=== PATIENT | female | born 1955 | race Caucasian/White ===

== ENCOUNTER 2017-07-18 01:40 | Emergency (ER) | payer MEDICAID ==
[~2017-07-18] VITALS: Ht 167.6 cm; Wt 87.0 kg
[~2017-07-18 01:40] MED LIST: ALBU0.63 NEB; ALBU18HF2 IH; ASPI-1071 PO; DOCU250C4 PO; ESCI10TA PO; HYDR-565 PO; LEVO100T46 PO; LORA10TA7 PO; NABU-102 PO; SIMV10TA2 PO; TRAZ50TA54 PO; [UNRECOGNIZED DRUG - OTHER] TOP
[2017-07-18 02:15] LABS: BASOPHILS # (AUTO) 0.1 X10'3 (0-0.2); BASOPHILS % (AUTO) 0.6 % (0-1); EOSINOPHILS # (AUTO) 0.3 X10'3 (0-0.9); EOSINOPHILS % (AUTO) 3.6 % (0-6); HEMOGLOBIN 13.1 g/dl (12.0-16.0); LYMPHOCYTES # (AUTO) 2.2 X10'3 (1.1-4.8); LYMPHOCYTES % (AUTO) 22.5 % (21-51); MEAN CORPUSCULAR HEMOGLOBIN 30.4 PG (27.0-31.0); MEAN CORPUSCULAR HGB CONC 33.7 % (33.0-36.5); MEAN CORPUSCULAR VOLUME 90.3 FL (78-98); MEAN PLATELET VOLUME 8.4 FL (7.4-10.4); MONOCYTES # (AUTO) 1.1 X10'3 (0-0.9); MONOCYTES % (AUTO) 11.4 % (2-12); NEUTROPHILS # (AUTO) 5.9 X10'3 (1.8-7.7); NEUTROPHILS % (AUTO) 61.9 % (42-75); PLATELET COUNT 301 X10'3 (140-440); RED BLOOD COUNT 4.32 X10'6 (4.20-5.60); RED CELL DISTRIBUTION WIDTH 14.2 % (11.5-14.5); WHITE BLOOD COUNT 9.6 X10'3 (4.5-11.0)
[2017-07-18 02:25] LABS: PARTIAL THROMBOPLASTIN TIME 27 SECONDS (22-32); PROTHROMBIN TIME 9.9 SECONDS (9.0-12.0)
[2017-07-18 02:35] LABS: ALANINE AMINOTRANSFERASE 25 U/L (12-78); ALBUMIN 3.7 G/DL (3.4-5.0); ALBUMIN/GLOBULIN RATIO 0.9 (1.1-1.5); ALKALINE PHOSPHATASE 77 IU/L (46-116); ANION GAP 12 (8-16); ASPARTATE AMINO TRANSFERASE 21 U/L (10-37); BILIRUBIN,TOTAL 0.3 MG/DL (0.1-1.0); BLOOD UREA NITROGEN 14 MG/DL (7-18); BUN/CREATININE RATIO 13.3 (6.6-38.0); CALCIUM 9.1 MG/DL (8.5-10.1); CHLORIDE 104 MMOL/L (99-107); CREATININE 1.05 MG/DL (0.40-0.90); GLUCOSE 123 MG/DL (70-104); MAGNESIUM 1.8 MG/DL (1.5-2.4); POTASSIUM 3.8 MMOL/L (3.5-5.1); SODIUM 141 MMOL/L (135-145); TOTAL PROTEIN 7.7 G/DL (6.4-8.2); eGFR 53 ML/MIN
[2017-07-18 04:07] VITALS: BP 119/49
== END 2017-07-18 04:09 | disposition home or self-care (01) ==
LOC: ER 01:41
DX: I47.1 Supraventricular tachycardia (principal); E78.00 Pure hypercholesterolemia, unspecified; I10 Essential (primary) hypertension; G89.29 Other chronic pain; E05.90 Thyrotoxicosis, unspecified without thyrotoxic crisis or storm; M19.90 Unspecified osteoarthritis, unspecified site; Z90.710 Acquired absence of both cervix and uterus; Z98.890 Other specified postprocedural states; Z79.82 Long term (current) use of aspirin; Z79.899 Other long term (current) drug therapy
CPT/HCPCS: 36415; 71045; 80053; 83735; 83880; 84100; 84484; 85025; 85610; 85730; 93005; 99285; J7030

== ENCOUNTER 2018-05-06 13:19 | Outpatient (CLI) | payer MEDICAID ==
[~2018-05-06] VITALS: Ht 157.5 cm; Wt 94.8 kg
[~2018-05-06 13:19] MED LIST changes: +HYDR-4353 PO; -HYDR-565 PO
[2018-05-06] MEDS ORDERED: OMEP-50 PO (13:42)
[2018-05-06 14:40] LABS: BASOPHILS # (AUTO) 0.1 X10'3 (0-0.2); BASOPHILS % (AUTO) 0.5 % (0-1); EOSINOPHILS # (AUTO) 0.4 X10'3 (0-0.9); LYMPHOCYTES # (AUTO) 3.4 X10'3 (1.1-4.8); LYMPHOCYTES % (AUTO) 31.9 % (21-51); MEAN CORPUSCULAR HEMOGLOBIN 30.6 PG (27.0-31.0); MEAN CORPUSCULAR HGB CONC 33.6 g/dL (33.0-36.5); MEAN CORPUSCULAR VOLUME 90.9 FL (78-98); MEAN PLATELET VOLUME 8.5 FL (7.4-10.4); MONOCYTES # (AUTO) 0.7 X10'3 (0-0.9); MONOCYTES % (AUTO) 6.9 % (2-12); NEUTROPHILS # (AUTO) 6.1 X10'3 (1.8-7.7); NEUTROPHILS % (AUTO) 56.7 % (42-75); PRE OP HEMATOCRIT 39.6 % (35.0-45.0); PRE OP HEMOGLOBIN 13.3 g/dL (12.0-16.0); PRE OP PLATELET COUNT 366 X10'3 (140-440); RED BLOOD COUNT 4.36 X10'6 (4.20-5.60); RED CELL DISTRIBUTION WIDTH 14.4 % (11.5-14.5)
[2018-05-06 15:01] LABS: PRE OP PROTIME 9.7 SECONDS (9.0-12.0)
[2018-05-06 15:03] LABS: ALBUMIN 3.9 G/DL (3.4-5.0); ALBUMIN/GLOBULIN RATIO 1.1 (1.1-1.5); ALKALINE PHOSPHATASE 89 IU/L (46-116); BLOOD UREA NITROGEN 14 MG/DL (7-18); BUN/CREATININE RATIO 15.4 (6.6-38.0); CALCIUM 9.3 MG/DL (8.5-10.1); CHLORIDE 105 MMOL/L (99-107); CREATININE 0.91 MG/DL (0.40-0.90); PRE OP ALT 25 U/L (30-65); PRE OP ANION GAP 7 (8-16); PRE OP AST 13 U/L (10-37); PRE OP BILIRUB, TOTAL 0.3 MG/DL (0.0-1.0); PRE OP GLUCOSE 90 MG/DL (70-104); PRE OP POTASSIUM 4.4 MMOL/L (3.4-5.1); PRE OP SODIUM 142 MMOL/L (135-145); TOTAL CARBON DIOXIDE 29.9 MMOL/L (24-32); TOTAL PROTEIN 7.6 G/DL (6.4-8.2); eGFR 63 ML/MIN
[2018-05-07] MEDS ORDERED: FLO44IN PO (11:04)
[2018-05-07] MEDS ORDERED: cefazolin/dext.iso 2gm/50ml 50 ML IV ONE (12:25)
[2018-05-08] MEDS ORDERED: ringers solution, lacted 1,000 ML IV SCH (05:00)
[2018-05-08] MEDS ORDERED: tranexamic acid inj. 950 MG in normal saline 100ml IV soln 100 ML IV ONE ×2 (05:30→09:30)
[2018-05-08] MEDS ORDERED: famotidine 20mg tablet PO ONE (05:30)
[2018-05-08] MEDS ORDERED: VANCOMYCIN INJ 1000 MG in NORMAL SALINE 250ml IV.SOLN IV ONE (05:30)
[2018-05-08] MEDS ORDERED: cefazolin/dext.iso 2gm/100 ML IV ONE (05:30)
== END 2018-05-06 23:59 | disposition home or self-care (01) ==
LOC: PRE-OP 13:19 → EDSTATUS 05-08 07:30
PROVIDERS: ATTEND Orthopaedic Surgery
DX: Z01.818 Encounter for other preprocedural examination (principal); M25.511 Pain in right shoulder; M19.011 Primary osteoarthritis, right shoulder; M75.22 Bicipital tendinitis, left shoulder; G56.03 Carpal tunnel syndrome, bilateral upper limbs; M62.81 Muscle weakness (generalized); M79.602 Pain in left arm; M25.532 Pain in left wrist; M25.531 Pain in right wrist; I10 Essential (primary) hypertension; Z98.890 Other specified postprocedural states; Z96.612 Presence of left artificial shoulder joint
CPT/HCPCS: 36415; 71046; 80053; 84443; 85025; 85610; 85730; 87070; J0690

== ENCOUNTER 2018-09-08 15:03 | Emergency (ER) | payer MEDICAID ==
[~2018-09-08] VITALS: Ht 152.4 cm; Wt 95.0 kg
[~2018-09-08 15:03] MED LIST changes: -ASPI-1071 PO; -DOCU250C4 PO; +FLO44IN PO; +OMEP-50 PO; -TRAZ50TA54 PO; -[UNRECOGNIZED DRUG - OTHER] TOP
[2018-09-08] MEDS ORDERED: normal saline 1000ML IV soln IVB ONE (15:40)
[2018-09-08 15:50] LABS: BASOPHILS # (AUTO) 0.1 X10'3 (0-0.2); BASOPHILS % (AUTO) 1.2 % (0-1); EOSINOPHILS # (AUTO) 0.3 X10'3 (0-0.9); EOSINOPHILS % (AUTO) 2.9 % (0-6); HEMATOCRIT 37.3 % (35.0-45.0); HEMOGLOBIN 12.6 g/dl (12.0-16.0); LYMPHOCYTES # (AUTO) 3.2 X10'3 (1.1-4.8); LYMPHOCYTES % (AUTO) 31.2 % (21-51); MEAN CORPUSCULAR HEMOGLOBIN 30.5 PG (27.0-31.0); MEAN CORPUSCULAR HGB CONC 33.7 g/dL (33.0-36.5); MEAN CORPUSCULAR VOLUME 90.4 FL (78-98); MEAN PLATELET VOLUME 8.6 FL (7.4-10.4); MONOCYTES # (AUTO) 0.9 X10'3 (0-0.9); MONOCYTES % (AUTO) 8.6 % (2-12); NEUTROPHILS # (AUTO) 5.8 X10'3 (1.8-7.7); NEUTROPHILS % (AUTO) 56.1 % (42-75); PLATELET COUNT 346 X10'3 (140-440); RED BLOOD COUNT 4.12 X10'6 (4.20-5.60); WHITE BLOOD COUNT 10.4 X10'3 (4.5-11.0)
[2018-09-08 16:04] LABS: ALANINE AMINOTRANSFERASE 24 U/L (12-78); ALBUMIN 3.4 G/DL (3.4-5.0); ALBUMIN/GLOBULIN RATIO 0.9 (1.1-1.5); ALKALINE PHOSPHATASE 81 IU/L (46-116); ANION GAP 4 (8-16); ASPARTATE AMINO TRANSFERASE 16 U/L (10-37); BILIRUBIN,TOTAL 0.3 MG/DL (0.1-1.0); BLOOD UREA NITROGEN 17 MG/DL (7-18); BUN/CREATININE RATIO 25.8 (6.6-38.0); CALCIUM 8.6 MG/DL (8.5-10.1); CHLORIDE 107 MMOL/L (99-107); CREATININE 0.66 MG/DL (0.40-0.90); GLUCOSE 107 MG/DL (70-104); POTASSIUM 4.2 MMOL/L (3.5-5.1); SODIUM 141 MMOL/L (135-145); TOTAL CARBON DIOXIDE 29.8 MMOL/L (24-32); eGFR > 90 ML/MIN
[2018-09-08 16:07] LABS: PARTIAL THROMBOPLASTIN TIME 30 SECONDS (22-32)
[2018-09-08 17:05] VITALS: BP 133/81
== END 2018-09-08 17:06 | disposition home or self-care (01) ==
LOC: ER 15:04
DX: R42 Dizziness and giddiness (principal); E86.0 Dehydration; R00.2 Palpitations; R79.1 Abnormal coagulation profile; I10 Essential (primary) hypertension; E78.00 Pure hypercholesterolemia, unspecified; G89.29 Other chronic pain; M19.90 Unspecified osteoarthritis, unspecified site; E05.90 Thyrotoxicosis, unspecified without thyrotoxic crisis or storm; J44.9 Chronic obstructive pulmonary disease, unspecified; Z79.899 Other long term (current) drug therapy; Z90.710 Acquired absence of both cervix and uterus; Z98.890 Other specified postprocedural states
CPT/HCPCS: 36415; 71045; 80053; 84484; 85025; 85610; 85730; 93005; 96360; 99284; J7030

== ENCOUNTER 2018-11-03 11:59 | Outpatient (CLI) | payer MEDICAID ==
[2018-11-03] VITALS (17 sets, daily range): BP systolic 95–144; BP diastolic 54–88
== END 2018-11-03 23:59 | disposition home or self-care (01) ==
LOC: CARD DIAG 11:59
PROVIDERS: ATTEND Internal Medicine Interventional Cardiology
DX: R42 Dizziness and giddiness (principal); I10 Essential (primary) hypertension; J45.909 Unspecified asthma, uncomplicated; Z90.710 Acquired absence of both cervix and uterus; Z90.722 Acquired absence of ovaries, bilateral
CPT/HCPCS: 93660

== ENCOUNTER 2021-06-12 09:04 | Inpatient (IN) | payer MEDICARE, MEDICAID ==
[2021-06-05 16:20] LABS: BASOPHILS # (AUTO) 0.1 X10'3 (0-0.2); BASOPHILS % (AUTO) 0.6 % (0-1); EOSINOPHILS # (AUTO) 0.1 X10'3 (0-0.9); EOSINOPHILS % (AUTO) 1.2 % (0-6); LYMPHOCYTES # (AUTO) 3.9 X10'3 (1.1-4.8); LYMPHOCYTES % (AUTO) 35.7 % (21-51); MEAN CORPUSCULAR HEMOGLOBIN 29.8 PG (27.0-31.0); MEAN CORPUSCULAR HGB CONC 32.8 g/dL (33.0-36.5); MEAN CORPUSCULAR VOLUME 90.9 FL (78-98); MEAN PLATELET VOLUME 8.1 FL (7.4-10.4); MONOCYTES # (AUTO) 0.8 X10'3 (0-0.9); MONOCYTES % (AUTO) 7.2 % (2-12); NEUTROPHILS % (AUTO) 55.3 % (42-75); PRE OP HEMATOCRIT 38.1 % (35.0-45.0); PRE OP HEMOGLOBIN 12.5 g/dL (12.0-16.0); PRE OP PLATELET COUNT 350 X10'3 (140-440); RED CELL DISTRIBUTION WIDTH 14.5 % (11.5-14.5)
[2021-06-05 16:26] LABS: ALKALINE PHOSPHATASE 96 IU/L (46-116); BLOOD UREA NITROGEN 14 MG/DL (7-18); BUN/CREATININE RATIO 19.4 (6.6-38.0); CALCIUM 9.2 MG/DL (8.5-10.1); CHLORIDE 103 MMOL/L (99-107); CREATININE 0.72 MG/DL (0.40-0.90); PRE OP ALT 26 U/L (30-65); PRE OP ANION GAP 12 (8-16); PRE OP AST 26 U/L (10-37); PRE OP BILIRUB, TOTAL 0.6 MG/DL (0.0-1.0); PRE OP GLUCOSE 97 MG/DL (70-104); PRE OP POTASSIUM 4.3 MMOL/L (3.4-5.1); PRE OP SODIUM 140 MMOL/L (135-145); TOTAL CARBON DIOXIDE 25.5 MMOL/L (24-32); TOTAL PROTEIN 7.9 G/DL (6.4-8.2); eGFR 81 ML/MIN
[2021-06-12] VITALS (20 sets, daily range): BP systolic 102–139; BP diastolic 52–75
[~2021-06-12] VITALS: Ht 154.9 cm; Wt 103.1 kg
[~2021-06-12 09:04] MED LIST changes: -ALBU0.63 NEB; +APIX5TAB3 PO; +FLEC100T35 PO; -FLO44IN PO; +GABA-530 PO; -LEVO100T46 PO; -LORA10TA7 PO; -NABU-102 PO; -OMEP-50 PO; +OMEP20CA16 PO; +albuterol 2.5 MG/3 ML nebule NEB ONE; +cefazolin/dext.iso 2gm/50ml IV ONE; +famotidine 20mg tablet PO ONE; +tranexamic acid 650mg tablet PO ONE; +vancomycin 1,500 MG in NS 300ml IV soln IV ONE
[2021-06-12] MEDS ORDERED: LEVO88TA7 PO (09:59)
[2021-06-12] MEDS ORDERED: UMEC62.5 PO (09:59)
[2021-06-12] MEDS ORDERED: albuterol 2.5 MG/3 ML nebule NEB ONE (10:05)
[2021-06-12] MEDS: ringers solution, lacted 1,000 ML IV SCH (10:24)
--- NOTE | 2021-06-12 11:18 | NUR ---
PT WAS ABLE TO COMPLETE ALL 5 SHOWERS AND BID OINTMENT. PT DID RECEIVE DVD, BUT DID NOT WATCH IT-PT DID NOT OWN DVD PLAYER. CSM TO RIGHT ARM INTACT
[2021-06-12] MEDS ORDERED: morphine 4 MG/ML inj SYRINge IV STA (11:27)
--- NOTE | 2021-06-12 11:47 | NUR ---
4MG MORPHINE GIVEN FOR PAIN 8/10 IN RIGHT SHOULDER, PULSE OX ON TO MONITOR O2 SAT, PT RESTING QUIETLY.
[2021-06-12] MEDS ORDERED: ketorolac trometh. 30mg/ml inj. ONE (12:27)
[2021-06-12] MEDS ORDERED: ROPIVAcaine 0.5% (5mg/ml) 30ml vial ONE (12:27)
[2021-06-12] MEDS ORDERED: FENTANYL CITRATE/PF 50 MCG/1 ML VIAL ONE (13:17)
[2021-06-12] MEDS ORDERED: LIDOcaine 2% (20mg/ml) 5ml vial ONE (13:18)
[2021-06-12] MEDS ORDERED: propofol inj 20 ML IV ONE (13:18)
[2021-06-12] MEDS ORDERED: succinylcholine 20mg/ml inj IV ONE (13:18)
[2021-06-12] MEDS ORDERED: ondansetron/PF 4mg/2ml inj IV PRN ×2 (14:20→15:35)
[2021-06-12] MEDS ORDERED: ROPIVAcaine 0.2%/PF PUMP/bolus 545 ML INTERSCALE SCH (14:20)
[2021-06-12] MEDS ORDERED: morphine 4 MG/ML inj SYRINge IV PRN (14:20)
[2021-06-12] MEDS ORDERED: ROPIVAcaine 0.2% (10 MG/5 ML) BOLUS INJECTION INTERSCALE PRN (14:20)
[2021-06-12] MEDS ORDERED: ringers solution, lacted 1,000 ML IV SCH (14:20)
[2021-06-12] MEDS ORDERED: morphine 2 MG/ML inj. syringe IV PRN (14:20)
[2021-06-12] MEDS ORDERED: enalaprilat dihydrate 2.5mg/2ml vial IV PRN (14:20)
[2021-06-12] MEDS ORDERED: HYDROmorphone/PF 0.2 MG/ML SYRINGE IV PRN ×2 (14:20)
[2021-06-12] MEDS ORDERED: hydrALAZINE 20mg/ml inj. IV PRN (14:20)
[2021-06-12] MEDS ORDERED: ondansetron/PF 4mg/2ml inj ONE (14:33)
--- NOTE | 2021-06-12 15:23 | NUR ---
Received from OR via hospital bed , accompanied by Anesthesiologist dr martinez and report given by Anesthesiolgist. PT PRESENTS WITH 18 G LET HAND, DRESSING WITH WRAP AND POWDER PACK ON RIGHT SHOULDER, CDI. VSS. Addendum: 06/12/21 at 1558 by Ngoc Simmons RN, RN Amended: Links added.
[2021-06-12] MEDS ORDERED: magnesium hydroxide 30ml (MOM) UD suspension PO PRN (15:35)
[2021-06-12] MEDS ORDERED: HYDROmorphone 1 mg/ml syringe IV PRN (15:35)
[2021-06-12] MEDS ORDERED: diphenhydrAMINE 25mg capsule PO PRN ×2 (15:35)
[2021-06-12] MEDS ORDERED: HYDROmorphone inj. 0.5 MG/0.5 ML DISP.SYRIN IV PRN (15:35)
[2021-06-12] MEDS ORDERED: bisacodyl 10mg suppository rectal RC PRN (15:35)
[2021-06-12] MEDS ORDERED: oxyCODONE IR 5mg (immed. release) tablet PO PRN (15:35)
[2021-06-12] MEDS ORDERED: acetaminophen 325mg tablet PO PRN ×3 (15:35→17:30)
[2021-06-12] MEDS ORDERED: albuterol 2.5 MG/3 ML nebule NEB PRN (15:50)
--- NOTE | 2021-06-12 16:53 | NUR ---
Report called to receiving nurse SAIRA ASHLEY. Transferred via HOSPITAL BED WITH C-PAP AND 1 PT Belongings BAG TO ROOM 345B. TAKEN UP BY OR Joroto. Special Issues communicated to receiving nurse. Addendum: 06/12/21 at 1659 by Ngoc Simmons RN RN Amended: Links added.
--- NOTE | 2021-06-12 17:26 | NUR ---
Spoke to Dr Olvera patient has a headache and just wants tylenol. Patient has scheduled tylenol at 2000. Per Dr olvera ok for Tylenol x1 650 mg po now and then ok for 2000 dose.
--- NOTE | 2021-06-12 18:46 | NUR ---
Patient received from recovery room. Ancef was not available, passed on to night RN. Patient reported only small headache, tylenol given.
--- NOTE | 2021-06-12 18:46 | NUR ---
Problems reprioritized. Patient report given, questions answered & plan of care reviewed with Cesilia Lomas RN.
--- NOTE | 2021-06-12 18:50 | NUR ---
Patient in room [facility]. I have received report from HANS ASHLEY and had the opportunity to ask questions and assume patient care.
[2021-06-12] MEDS: ceFAZolin/D5W- 1GM premix 50 ML IV SCH (18:59)
[2021-06-12] MEDS: acetaminophen 325mg tablet PO SCH (20:00)
[2021-06-12] MEDS ORDERED: VANCOMYCIN 1GM/200ML IVPB 250 ML IV SCH (20:00)
[2021-06-12] MEDS: apixaban 5mg tablet PO SCH (20:48)
[2021-06-12] MEDS: flecainide 50mg tablet PO SCH (20:49)
[2021-06-12] MEDS: oxyCODONE IR 5mg (immed. release) tablet PO PRN (20:54)
[2021-06-12] MEDS ORDERED: gabapentin 100mg capsule PO SCH (21:00)
[2021-06-12] MEDS ORDERED: sennosides 8.6mg tablet PO SCH (21:00)
[2021-06-12] MEDS ORDERED: atorvastatin 10mg tablet PO SCH (21:00)
[2021-06-13] VITALS: BP 113/63
[2021-06-13] MEDS: ceFAZolin/D5W- 1GM premix 50 ML IV SCH (01:01)
[2021-06-13] MEDS: ringers solution, lacted 1,000 ML IV SCH (01:04)
[2021-06-13] MEDS: acetaminophen 325mg tablet PO SCH ×3 (02:00→13:37)
[2021-06-13 04:00] VITALS: BP 156/96
[2021-06-13] MEDS: oxyCODONE IR 5mg (immed. release) tablet PO PRN ×2 (04:11→17:02)
--- NOTE | 2021-06-13 06:13 | NUR ---
Problems reprioritized. Patient report given, questions answered & plan of care reviewed with HANS ASHLEY.
[2021-06-13 07:11] VITALS: BP 144/68
[2021-06-13] MEDS: flecainide 50mg tablet PO SCH (07:27)
[2021-06-13] MEDS: apixaban 5mg tablet PO SCH (07:28)
[2021-06-13] MEDS ORDERED: pantoprazole 40mg Tablet.DR PO SCH (07:30)
[2021-06-13] MEDS ORDERED: HYDROcodone/acetaminophen 10/325mg tab PO SCH (08:00)
[2021-06-13] MEDS ORDERED: ESCITALOPRAM OXALATE 5 MG TABLET PO SCH (08:00)
--- NOTE | 2021-06-13 10:46 | NUR ---
Respiratory team paged regarding breathing treatment request from patient.
--- NOTE | 2021-06-13 11:34 | NUR ---
Spoke to jt Estrada regarding patient's Ellipta. She says she will be able to bring it in.
[2021-06-13 12:00] VITALS: BP 135/58
[2021-06-13 13:16] LABS: BASOPHILS % (AUTO) 0.2 % (0-1); EOSINOPHILS % (AUTO) 0 % (0-6); HEMATOCRIT 33.9 % (35.0-45.0); HEMOGLOBIN 10.9 g/dl (12.0-16.0); LYMPHOCYTES # (AUTO) 2.6 X10'3 (1.1-4.8); LYMPHOCYTES % (AUTO) 17.2 % (21-51); MEAN CORPUSCULAR HGB CONC 32.2 g/dL (33.0-36.5); MEAN CORPUSCULAR VOLUME 90.3 FL (78-98); MONOCYTES # (AUTO) 1.4 X10'3 (0-0.9); MONOCYTES % (AUTO) 9.2 % (2-12); NEUTROPHILS # (AUTO) 11.3 X10'3 (1.8-7.7); NEUTROPHILS % (AUTO) 73.4 % (42-75); PLATELET COUNT 341 X10'3 (140-440); RED BLOOD COUNT 3.75 X10'6 (4.20-5.60); RED CELL DISTRIBUTION WIDTH 14.9 % (11.5-14.5); WHITE BLOOD COUNT 15.3 X10'3 (4.5-11.0)
[2021-06-13] MEDS ORDERED: ondansetron 4mg rapidly disintigrating tab PO PRN (14:00)
[2021-06-13 14:19] LABS: CHLORIDE 104 MMOL/L (99-107); POTASSIUM 3.8 MMOL/L (3.5-5.1); SODIUM 141 MMOL/L (135-145)
[2021-06-13 14:24] LABS: ANION GAP 11 (8-16)
--- NOTE | 2021-06-13 16:19 | NUR ---
Ambulated patient around unit on room air, patient oxygen saturation mid 90s after ambulating. Amelia Tran says she is not worried about patient report of green sputum. Will be discharging.
--- NOTE | 2021-06-13 17:26 | NUR ---
Discharge paperwork reviewed with patient. Belongings/medications sent with patient. ON-Q pump instructions reviewed. IV removed, catheter tip intact. Free from injuries.
[2021-06-14] MEDS ORDERED: acetaminophen 325mg tablet PO PRN (15:00)
== END 2021-06-13 17:26 | disposition home health service (06) | DRG 483 ==
LOC: PAS IN 09:04 → SUR 3N 17:00
PROVIDERS: ADMIT Orthopaedic Surgery; ATTEND Orthopaedic Surgery
PROC: 0LS30ZZ Reposition Right Upper Arm Tendon, Open Approach (ICD-10-PCS; 2021-06-12)
PROC: 3E0T3BZ Introduction of Anesthetic Agent into Peripheral Nerves and Plexi, Percutaneous Approach (ICD-10-PCS; 2021-06-12)
PROC: 3E0T33Z Introduction of Anti-inflammatory into Peripheral Nerves and Plexi, Percutaneous Approach (ICD-10-PCS; 2021-06-12)
PROC: 0RRJ00Z Replacement of Right Shoulder Joint with Reverse Ball and Socket Synthetic Substitute, Open Approach (ICD-10-PCS; principal; 2021-06-12 13:13)
DX: M19.011 Primary osteoarthritis, right shoulder (principal); M65.811 Other synovitis and tenosynovitis, right shoulder; J44.9 Chronic obstructive pulmonary disease, unspecified; M75.101 Unspecified rotator cuff tear or rupture of right shoulder, not specified as traumatic; Z56.0 Unemployment, unspecified
CPT/HCPCS: 36415; 71046; 80051; 80053; 82948; 84443; 85025; 87081; 93005; 94640; 94760; 97110; 97116; 97161; 97530; A4215; A4618; A7000; C1776; G0378; J0330; J0690; J1885; J2270; J2405; J2704; J2795; J3010; J3370; J3490; J7040; J7120; U0003; U0005

== ENCOUNTER 2021-06-22 13:16 | Inpatient (IN) | payer MEDICARE, MEDICAID ==
[~2021-06-22] VITALS: Ht 157.5 cm; Wt 105.9 kg
[~2021-06-22 13:16] MED LIST changes: -HYDR-4353 PO; +LEVO88TA7 PO; +UMEC62.5 PO; -albuterol 2.5 MG/3 ML nebule NEB ONE; -cefazolin/dext.iso 2gm/50ml IV ONE; -famotidine 20mg tablet PO ONE; -tranexamic acid 650mg tablet PO ONE; -vancomycin 1,500 MG in NS 300ml IV soln IV ONE
[2021-06-22 15:29] LABS: BASOPHILS # (AUTO) 0.1 X10'3 (0-0.2); BASOPHILS % (AUTO) 0.6 % (0-1); EOSINOPHILS # (AUTO) 0.3 X10'3 (0-0.9); EOSINOPHILS % (AUTO) 2.9 % (0-6); HEMATOCRIT 30.3 % (35.0-45.0); HEMOGLOBIN 10.1 g/dl (12.0-16.0); LYMPHOCYTES # (AUTO) 2.9 X10'3 (1.1-4.8); LYMPHOCYTES % (AUTO) 27.5 % (21-51); MEAN CORPUSCULAR HEMOGLOBIN 29.9 PG (27.0-31.0); MEAN CORPUSCULAR HGB CONC 33.3 g/dL (33.0-36.5); MEAN CORPUSCULAR VOLUME 89.8 FL (78-98); MEAN PLATELET VOLUME 7.1 FL (7.4-10.4); MONOCYTES # (AUTO) 0.8 X10'3 (0-0.9); MONOCYTES % (AUTO) 7.6 % (2-12); NEUTROPHILS # (AUTO) 6.4 X10'3 (1.8-7.7); NEUTROPHILS % (AUTO) 61.4 % (42-75); PLATELET COUNT 548 X10'3 (140-440); RED BLOOD COUNT 3.38 X10'6 (4.20-5.60); RED CELL DISTRIBUTION WIDTH 14.5 % (11.5-14.5); WHITE BLOOD COUNT 10.4 X10'3 (4.5-11.0)
[2021-06-22 15:49] LABS: D-DIMER 7.63 MG/L FEU (0-0.50)
[2021-06-22 15:55] LABS: ALANINE AMINOTRANSFERASE 49 U/L (12-78); ALBUMIN/GLOBULIN RATIO 0.8 (1.1-1.5); ALKALINE PHOSPHATASE 119 IU/L (46-116); ANION GAP 10 (8-16); ASPARTATE AMINO TRANSFERASE 26 U/L (10-37); BILIRUBIN,TOTAL 0.5 MG/DL (0.1-1.0); BLOOD UREA NITROGEN 10 MG/DL (7-18); BUN/CREATININE RATIO 17.2 (6.6-38.0); CHLORIDE 105 MMOL/L (99-107); CREATININE 0.58 MG/DL (0.40-0.90); GLUCOSE 98 MG/DL (70-104); POTASSIUM 4.1 MMOL/L (3.5-5.1); SODIUM 143 MMOL/L (135-145); TOTAL CARBON DIOXIDE 27.6 MMOL/L (24-32); eGFR > 90 ML/MIN
[2021-06-22] MEDS ORDERED: iohexol 350MG/ML 100ml bottle IV ONE (16:59)
[2021-06-22] MEDS ORDERED: iohexol 350 MG/ML 50ML vial IV ONE (17:04)
[2021-06-22] MEDS ORDERED: piperacillin/tazo 3.375gm/50ml 50 ML IV ONE (19:05)
--- NOTE | 2021-06-22 19:45 | NUR ---
Telemed assessing pt.
--- NOTE | 2021-06-22 21:45 | NUR ---
Viraj called to inquire about pt's status.
--- NOTE | 2021-06-22 22:00 | NUR ---
pt upset because provider did not return to discuss the results of her tests and status; sat with pt and address her concerns and to update her on the progress of her visit in the ed; pt began feeling better after our discussion.
--- NOTE | 2021-06-22 22:14 | NUR ---
Dr. Maldonado at bs
[2021-06-22] MEDS ORDERED: acetaminophen 325mg tablet PO PRN ×2 (22:25)
[2021-06-22] MEDS ORDERED: magnesium Cl slow-release 64mg tablet PO PRN (22:25)
[2021-06-22] MEDS ORDERED: ondansetron/PF 4mg/2ml inj IV PRN (22:25)
[2021-06-22] MEDS ORDERED: magnesium 4gm in 100ml NS 100 ML IV PRN (22:25)
[2021-06-22] MEDS ORDERED: mag hydrox/Alum hydrox/simeth 30ml oral suspension PO PRN (22:25)
[2021-06-22] MEDS ORDERED: potassium CL 10mEq/100ml bag 100 ML IV PRN (22:25)
[2021-06-22] MEDS ORDERED: morphine 2 MG/ML inj. syringe IV PRN ×2 (22:25)
[2021-06-22] MEDS ORDERED: potassium Cl 20 mEq SR tablet PO PRN ×2 (22:25)
[2021-06-22] MEDS ORDERED: magnesium 2GM in 50ml NS 50 ML IV PRN (22:25)
[2021-06-22] MEDS ORDERED: HYDROcodone/acetaminophen 5mg/325mg tablet PO PRN (22:25)
[2021-06-22] MEDS ORDERED: albuterol 2.5 MG/3 ML nebule NEB PRN (22:55)
[2021-06-22] MEDS: normal saline 1000ml 1,000 ML IV SCH (23:06)
--- NOTE | 2021-06-22 23:17 | NUR ---
Report called to RN on surgical unit for bed 358A
[2021-06-23] VITALS: BP 119/71
--- NOTE | 2021-06-23 00:45 | NUR ---
ATTEMPTED TO SET UP PATIENT WITH HOSPITAL CPAP MACHINE. PATIENT STATED SHE COULD NOT HANDLE OUR MASKS OR MACHINE. SHE STATED SHE WOULD HAVE FAMILY BRING IN HER PERSONAL UNIT TODAY. RN AND INFORMED
[2021-06-23] MEDS: ipratropium 0.5 MG/2.5ML nebule NEB SCH ×4 (03:00→21:11)
[2021-06-23 06:04] LABS: BASOPHILS % (AUTO) 0.3 % (0-1); EOSINOPHILS # (AUTO) 0.2 X10'3 (0-0.9); EOSINOPHILS % (AUTO) 1.8 % (0-6); HEMATOCRIT 29.4 % (35.0-45.0); HEMOGLOBIN 9.4 g/dl (12.0-16.0); LYMPHOCYTES # (AUTO) 2.8 X10'3 (1.1-4.8); LYMPHOCYTES % (AUTO) 24.5 % (21-51); MEAN CORPUSCULAR HEMOGLOBIN 28.8 PG (27.0-31.0); MEAN CORPUSCULAR HGB CONC 31.8 g/dL (33.0-36.5); MEAN CORPUSCULAR VOLUME 90.3 FL (78-98); MEAN PLATELET VOLUME 7.2 FL (7.4-10.4); MONOCYTES # (AUTO) 0.8 X10'3 (0-0.9); MONOCYTES % (AUTO) 7.3 % (2-12); NEUTROPHILS # (AUTO) 7.5 X10'3 (1.8-7.7); NEUTROPHILS % (AUTO) 66.1 % (42-75); PLATELET COUNT 530 X10'3 (140-440); RED BLOOD COUNT 3.25 X10'6 (4.20-5.60); RED CELL DISTRIBUTION WIDTH 14.9 % (11.5-14.5); WHITE BLOOD COUNT 11.4 X10'3 (4.5-11.0)
[2021-06-23 06:18] LABS: ALANINE AMINOTRANSFERASE 37 U/L (12-78); ALBUMIN 2.8 G/DL (3.4-5.0); ALBUMIN/GLOBULIN RATIO 0.8 (1.1-1.5); ALKALINE PHOSPHATASE 105 IU/L (46-116); ANION GAP 5 (8-16); ASPARTATE AMINO TRANSFERASE 24 U/L (10-37); BILIRUBIN,TOTAL 0.5 MG/DL (0.1-1.0); BLOOD UREA NITROGEN 9 MG/DL (7-18); BUN/CREATININE RATIO 15.8 (6.6-38.0); CALCIUM 8.4 MG/DL (8.5-10.1); CHLORIDE 108 MMOL/L (99-107); CREATININE 0.57 MG/DL (0.40-0.90); GLUCOSE 97 MG/DL (70-104); POTASSIUM 3.8 MMOL/L (3.5-5.1); SODIUM 142 MMOL/L (135-145); TOTAL CARBON DIOXIDE 29.1 MMOL/L (24-32); TOTAL PROTEIN 6.2 G/DL (6.4-8.2); eGFR > 90 ML/MIN
[2021-06-23 07:00] VITALS: BP 130/57
[2021-06-23] MEDS ORDERED: doxycycline inj 100 MG in normal saline 100ml IV soln 100 ML IV SCH (08:00)
[2021-06-23] MEDS: K and/or MAG REPLACEMENT MC SCH ×2 (08:00→20:00)
[2021-06-23] MEDS: flecainide 50mg tablet PO SCH ×2 (08:46→20:49)
[2021-06-23] MEDS: pantoprazole 40mg Tablet.DR PO SCH (08:47)
[2021-06-23] MEDS: levoTHYROXINE 88mcg tablet PO SCH (08:47)
[2021-06-23] MEDS: heparin, porcine 5000 units/ml vial SQ SCH ×2 (08:54→22:10)
[2021-06-23 11:00] VITALS: BP 123/46
[2021-06-23] MEDS: nystatin 15 GM powder TP SCH ×2 (11:32→20:52)
[2021-06-23] MEDS: vancomycin/NS 1 GM ADD-VANTAGE 250 ML IV SCH ×2 (11:32→20:58)
[2021-06-23] MEDS: HYDROcodone/acetaminophen 10/325mg tab PO PRN ×2 (11:33→17:54)
[2021-06-23] MEDS: normal saline 1000ml 1,000 ML IV SCH (12:43)
[2021-06-23] MEDS ORDERED: ondansetron 4mg rapidly disintigrating tab PO PRN (15:20)
--- NOTE | 2021-06-23 19:00 | NUR ---
Report given to Esperanza ASHLEY, all questions answered. No current concerns. Patient resting comfortably, Family came to visit before shift change.
[2021-06-23 20:00] VITALS: BP 131/84
[2021-06-23] MEDS: gabapentin 100mg capsule PO SCH (20:51)
[2021-06-23] MEDS: atorvastatin 10mg tablet PO SCH (20:52)
[2021-06-23] MEDS: hydrocortisone 1% cream 28gm TP SCH (20:53)
[2021-06-23] MEDS: ESCITALOPRAM OXALATE 5 MG TABLET PO SCH (20:55)
[2021-06-24] VITALS: BP 122/50
[2021-06-24] MEDS: normal saline 1000ml 1,000 ML IV SCH ×2 (02:21→17:19)
[2021-06-24] MEDS: ipratropium 0.5 MG/2.5ML nebule NEB SCH ×4 (03:38→21:17)
[2021-06-24 06:06] LABS: BASOPHILS % (AUTO) 0.6 % (0-1); EOSINOPHILS # (AUTO) 0.2 X10'3 (0-0.9); EOSINOPHILS % (AUTO) 2.8 % (0-6); HEMATOCRIT 28.8 % (35.0-45.0); HEMOGLOBIN 9.2 g/dl (12.0-16.0); LYMPHOCYTES # (AUTO) 2.5 X10'3 (1.1-4.8); LYMPHOCYTES % (AUTO) 30.4 % (21-51); MEAN CORPUSCULAR HEMOGLOBIN 28.9 PG (27.0-31.0); MEAN CORPUSCULAR HGB CONC 32.1 g/dL (33.0-36.5); MEAN CORPUSCULAR VOLUME 90.2 FL (78-98); MEAN PLATELET VOLUME 7.1 FL (7.4-10.4); MONOCYTES # (AUTO) 0.6 X10'3 (0-0.9); MONOCYTES % (AUTO) 7.6 % (2-12); NEUTROPHILS # (AUTO) 4.9 X10'3 (1.8-7.7); NEUTROPHILS % (AUTO) 58.6 % (42-75); PLATELET COUNT 523 X10'3 (140-440); RED BLOOD COUNT 3.19 X10'6 (4.20-5.60); RED CELL DISTRIBUTION WIDTH 15.1 % (11.5-14.5); WHITE BLOOD COUNT 8.4 X10'3 (4.5-11.0)
--- NOTE | 2021-06-24 06:33 | NUR ---
[id number] late entry pt became anxious and c/o itching and scratching neck after vancomycin was started. pt stated " i dont know what is wrong. pt neck red rash noted. vanco stopped . dr brown was notified. instructed to stop vancomycin . reminded dr brown pt has positive blood cultures (gram + cocci.in clusters aerobic bottle ) asked dr brown if she wanted any additional antibotics given. no orders given
[2021-06-24 06:38] LABS: ALANINE AMINOTRANSFERASE 32 U/L (12-78); ALBUMIN 2.7 G/DL (3.4-5.0); ALBUMIN/GLOBULIN RATIO 0.8 (1.1-1.5); ALKALINE PHOSPHATASE 94 IU/L (46-116); ANION GAP 10 (8-16); ASPARTATE AMINO TRANSFERASE 16 U/L (10-37); BILIRUBIN,TOTAL 0.3 MG/DL (0.1-1.0); BLOOD UREA NITROGEN 11 MG/DL (7-18); BUN/CREATININE RATIO 17.7 (6.6-38.0); CALCIUM 8.4 MG/DL (8.5-10.1); CHLORIDE 108 MMOL/L (99-107); CREATININE 0.62 MG/DL (0.40-0.90); GLUCOSE 105 MG/DL (70-104); POTASSIUM 3.9 MMOL/L (3.5-5.1); SODIUM 144 MMOL/L (135-145); TOTAL CARBON DIOXIDE 26.2 MMOL/L (24-32); eGFR > 90 ML/MIN
[2021-06-24 07:00] VITALS: BP 153/60
[2021-06-24] MEDS: heparin, porcine 5000 units/ml vial SQ SCH ×2 (07:36→19:45)
[2021-06-24] MEDS: K and/or MAG REPLACEMENT MC SCH ×2 (07:38→19:47)
[2021-06-24] MEDS: flecainide 50mg tablet PO SCH ×2 (07:42→19:45)
[2021-06-24] MEDS: levoTHYROXINE 88mcg tablet PO SCH (07:42)
[2021-06-24] MEDS: pantoprazole 40mg Tablet.DR PO SCH (07:42)
[2021-06-24] MEDS ORDERED: LIDOcaine 1% (10mg/ml)w/preservative inj. 20ml MDV ONE (07:56)
[2021-06-24] MEDS: hydrocortisone 1% cream 28gm TP SCH ×2 (08:00→20:00)
[2021-06-24 08:51] VITALS: BP 122/40
[2021-06-24 09:06] VITALS: BP 119/58
[2021-06-24] MEDS: nystatin 15 GM powder TP SCH ×2 (09:47→20:00)
[2021-06-24 11:00] VITALS: BP 133/61
[2021-06-24] MEDS: linezolid 600mg/300ml PREMIX 300 ML IV SCH ×2 (13:27→19:41)
[2021-06-24] MEDS ORDERED: CefTRIAXone 2gm/D5W 50ml BAG 50 ML IV SCH (14:05)
[2021-06-24] MEDS ORDERED: CefTRIAXone 2gm/NS 100ml IVPB 50 ML IV SCH (14:16)
[2021-06-24] MEDS ORDERED: CefTRIAXone 2gm/NS 100ml IVPB 100 ML IV SCH (14:17)
[2021-06-24] MEDS: CefTRIAXone 2gm/NS 100ml IVPB 100 ML IV SCH (15:52)
[2021-06-24] MEDS: HYDROcodone/acetaminophen 10/325mg tab PO PRN (15:58)
--- NOTE | 2021-06-24 18:25 | NUR ---
Patient in room [facility]. I have received report from Felipa ASHLEY and had the opportunity to ask questions and assume patient care.
--- NOTE | 2021-06-24 18:39 | NUR ---
Report given to Jasmin Merrill, all questions answered. Pt drinking coffee, eating dinner and sitting up at bedside. Pt doing well at this time. No issue with abx reaction today with new meds.
[2021-06-24] MEDS ORDERED: VANCOMYCIN LEVEL IV ONE (19:30)
[2021-06-24 20:00] VITALS: BP 120/40
[2021-06-24] MEDS: atorvastatin 10mg tablet PO SCH (20:23)
[2021-06-24] MEDS: ESCITALOPRAM OXALATE 5 MG TABLET PO SCH (20:23)
[2021-06-24] MEDS: gabapentin 100mg capsule PO SCH (20:23)
[2021-06-25] VITALS: BP_SYST 124; BP_SYST 129; BP_DIAS 54; BP_DIAS 62
[2021-06-25] MEDS: normal saline 1000ml 1,000 ML IV SCH
[2021-06-25] MEDS: ipratropium 0.5 MG/2.5ML nebule NEB SCH ×2 (02:48→08:38)
[2021-06-25 06:03] LABS: BASOPHILS % (AUTO) 0.5 % (0-1); EOSINOPHILS # (AUTO) 0.2 X10'3 (0-0.9); EOSINOPHILS % (AUTO) 3.1 % (0-6); HEMATOCRIT 29.1 % (35.0-45.0); HEMOGLOBIN 9.5 g/dl (12.0-16.0); LYMPHOCYTES # (AUTO) 2.3 X10'3 (1.1-4.8); MEAN CORPUSCULAR HEMOGLOBIN 29.6 PG (27.0-31.0); MEAN CORPUSCULAR HGB CONC 32.7 g/dL (33.0-36.5); MEAN CORPUSCULAR VOLUME 90.6 FL (78-98); MONOCYTES # (AUTO) 0.6 X10'3 (0-0.9); MONOCYTES % (AUTO) 8.1 % (2-12); NEUTROPHILS # (AUTO) 4.7 X10'3 (1.8-7.7); NEUTROPHILS % (AUTO) 59.3 % (42-75); PLATELET COUNT 543 X10'3 (140-440); RED BLOOD COUNT 3.22 X10'6 (4.20-5.60); RED CELL DISTRIBUTION WIDTH 14.9 % (11.5-14.5)
--- NOTE | 2021-06-25 06:30 | NUR ---
Patient in room [facility] 358A. I have received report from Jasmin ASHLEY and had the opportunity to ask questions and assume patient care.
[2021-06-25 06:37] LABS: ALANINE AMINOTRANSFERASE 30 U/L (12-78); ALBUMIN 2.7 G/DL (3.4-5.0); ALBUMIN/GLOBULIN RATIO 0.8 (1.1-1.5); ALKALINE PHOSPHATASE 96 IU/L (46-116); ANION GAP 11 (8-16); ASPARTATE AMINO TRANSFERASE 17 U/L (10-37); BILIRUBIN,TOTAL 0.3 MG/DL (0.1-1.0); BLOOD UREA NITROGEN 7 MG/DL (7-18); BUN/CREATININE RATIO 10.9 (6.6-38.0); CALCIUM 8.6 MG/DL (8.5-10.1); CHLORIDE 106 MMOL/L (99-107); CREATININE 0.64 MG/DL (0.40-0.90); GLUCOSE 103 MG/DL (70-104); POTASSIUM 3.9 MMOL/L (3.5-5.1); SODIUM 142 MMOL/L (135-145); TOTAL CARBON DIOXIDE 25.3 MMOL/L (24-32); TOTAL PROTEIN 6.2 G/DL (6.4-8.2); eGFR > 90 ML/MIN
[2021-06-25] MEDS: CefTRIAXone 2gm/NS 100ml IVPB 100 ML IV SCH (07:07)
[2021-06-25 07:15] VITALS: BP 123/50
[2021-06-25] MEDS: pantoprazole 40mg Tablet.DR PO SCH (07:34)
[2021-06-25] MEDS: flecainide 50mg tablet PO SCH (07:35)
[2021-06-25] MEDS: levoTHYROXINE 88mcg tablet PO SCH (07:35)
[2021-06-25] MEDS: HYDROcodone/acetaminophen 10/325mg tab PO PRN (07:36)
[2021-06-25] MEDS: heparin, porcine 5000 units/ml vial SQ SCH (07:38)
--- NOTE | 2021-06-25 07:46 | NUR ---
Medication administration supervised by Clinical Highway Truck Driver
[2021-06-25 08:00] VITALS: BP 134/48
[2021-06-25] MEDS: hydrocortisone 1% cream 28gm TP SCH ×2 (08:00→09:37)
[2021-06-25] MEDS: K and/or MAG REPLACEMENT MC SCH (08:00)
[2021-06-25] MEDS: nystatin 15 GM powder TP SCH (08:07)
[2021-06-25] MEDS: linezolid 600mg/300ml PREMIX 300 ML IV SCH (08:08)
--- NOTE | 2021-06-25 08:23 | NUR ---
Patient reported having a bowel movement. Stated that it was normal. Was not witnessed by me. Addendum: 06/25/21 at 1034 by Toya Ramsey - LIZZY LEMON Patient states that her urine is normal, yellow and no odor.
--- NOTE | 2021-06-25 10:30 | NUR ---
Charting by Toya DEL REAL reviewed by Rupa Wilhelm RN
[2021-06-25 10:53] VITALS: BP 115/41
--- NOTE | 2021-06-25 11:49 | NUR ---
Noted pt currently receiving Zyvox per EMR. international first officer provided verbal and written low tyramine diet education at bedside w/ RD contact information. Will continue to follow. Addendum: 06/25/21 at 1149 by Shireen Simmons Training Professional RD Amended: Links added. Addendum: 06/25/21 at [address] I have reviewed assessment by internet marketer
[2021-06-25 11:53] VITALS: BP 115/41
[2021-06-25] MEDS ORDERED: CLIN-97 PO (12:05)
--- NOTE | 2021-06-25 13:13 | NUR ---
Patient left with all belongings at this time, Patient IV taken out and canula was whole and intact upon inspection. Patient educations was given verbally to patient and educations on follow up and new medications were gone over with patient. Patient left in a private vehicle at this time.
--- NOTE | 2021-06-25 13:20 | NUR ---
PT reported last bowel movement was today 06-25-21. Pt states it was brown in color, medium in size, and soft. I was also unable to check peripheral pulses today upon assessment, as pt had her shoes and socks on and was being discharged upon my arrival.
--- NOTE | 2021-06-25 13:42 | NUR ---
Charting by Cyn DEL REAL reviewed by Rupa Wilhelm RN
--- NOTE | 2021-06-25 14:20 | NUR ---
WOUND INFECTION EDUCATION PROVIDED BY WOUND CARE 1. Patient instructed to call their primary doctor, or go the ED immediately if any of the following symptoms occur: * Increased pain in wound * Increase in drainage from the wound * Redness in the skin surrounding the wound * Warmth in the skin surrounding the wound * Bleeding from the wound * Temperature of 101 or greater 2. If any of these occur while in the hospital tell a nurse immediately. Addendum: 06/25/21 at 1420 by Alisa Lee RN Amended: Links added.
== END 2021-06-25 13:06 | disposition home or self-care (01) | DRG 920 ==
LOC: ER 13:17 → SUR 3N 22:28
PROVIDERS: ADMIT Internal Medicine; ATTEND Internal Medicine
PROC: B32T1ZZ Computerized Tomography (CT Scan) of Left Pulmonary Artery using Low Osmolar Contrast (ICD-10-PCS; 2021-06-22)
PROC: B3201ZZ Computerized Tomography (CT Scan) of Thoracic Aorta using Low Osmolar Contrast (ICD-10-PCS; 2021-06-22)
PROC: B32S1ZZ Computerized Tomography (CT Scan) of Right Pulmonary Artery using Low Osmolar Contrast (ICD-10-PCS; 2021-06-22)
PROC: 0R9J3ZZ Drainage of Right Shoulder Joint, Percutaneous Approach (ICD-10-PCS; principal; 2021-06-24)
PROC: 5A09357 Assistance with Respiratory Ventilation, Less than 24 Consecutive Hours, Continuous Positive Airway Pressure (ICD-10-PCS; 2021-06-24)
PROC: 5A09357 Assistance with Respiratory Ventilation, Less than 24 Consecutive Hours, Continuous Positive Airway Pressure (ICD-10-PCS; 2021-06-25)
DX: M96.840 Postprocedural hematoma of a musculoskeletal structure following a musculoskeletal system procedure (principal); Z68.41 Body mass index [BMI] 40.0-44.9, adult; M60.011 Infective myositis, right shoulder; E03.9 Hypothyroidism, unspecified; E66.01 Morbid (severe) obesity due to excess calories; E78.00 Pure hypercholesterolemia, unspecified; E78.5 Hyperlipidemia, unspecified; I10 Essential (primary) hypertension; Z96.611 Presence of right artificial shoulder joint; F32.A Depression, unspecified; Y83.8 Other surgical procedures as the cause of abnormal reaction of the patient, or of later complication, without mention of misadventure at the time of the procedure; F41.9 Anxiety disorder, unspecified; R47.1 Dysarthria and anarthria; G89.29 Other chronic pain; M19.90 Unspecified osteoarthritis, unspecified site; H57.89 Other specified disorders of eye and adnexa; I48.0 Paroxysmal atrial fibrillation; S20.01XA Contusion of right breast, initial encounter; F17.220 Nicotine dependence, chewing tobacco, uncomplicated; Z79.01 Long term (current) use of anticoagulants; Z82.5 Family history of asthma and other chronic lower respiratory diseases; Z90.710 Acquired absence of both cervix and uterus; Z71.6 Tobacco abuse counseling; Z79.899 Other long term (current) drug therapy; Z88.1 Allergy status to other antibiotic agents; Y92.89 Other specified places as the place of occurrence of the external cause
CPT/HCPCS: 10030; 36415; 70450; 71275; 80053; 83605; 83880; 84145; 84443; 84484; 85025; 85379; 85610; 87040; 87070; 87077; 87081; 87186; 94640; 94660; 94760; 96365; 99285; G0378; J0696; J1644; J2020; J2543; J3370; J3490; J7030; Q9967

== ENCOUNTER 2021-11-29 23:58 | Emergency (ER) | payer MEDICARE, MEDICAID ==
[~2021-11-29] VITALS: Ht 165.1 cm; Wt 92.7 kg
[~2021-11-29 23:58] MED LIST changes: +CLIN-97 PO; +SIMV-341 PO; -SIMV10TA2 PO
[2021-11-30 00:29] VITALS: BP 123/63
== END 2021-11-30 03:22 | disposition left against medical advice (07) ==
LOC: ER 23:59
DX: R51.9 Headache, unspecified (principal); Z53.21 Procedure and treatment not carried out due to patient leaving prior to being seen by health care provider; W19.XXXA Unspecified fall, initial encounter; Y93.89 Activity, other specified; Y92.89 Other specified places as the place of occurrence of the external cause; Y99.8 Other external cause status
CPT/HCPCS: 70450; 72125

== ENCOUNTER 2024-04-05 11:39 | Emergency (ER) | payer MEDICARE, MEDICAID ==
[~2024-04-05] VITALS: Ht 153.7 cm; Wt 96.6 kg
[2024-04-05 11:44] VITALS: BP 122/63; PULSE 71; RESP 18; O2SAT 94
[2024-04-05] MEDS ORDERED: ONDA-243 PO (12:44)
[2024-04-05] MEDS ORDERED: AZIT-164 PO (12:44)
[2024-04-05] MEDS: dexamethasone sod phosphate 10mg/ml inj PO STA (13:09)
== END 2024-04-05 13:10 | disposition home or self-care (01) ==
LOC: ER 11:40
DX: J20.9 Acute bronchitis, unspecified (principal); I48.91 Unspecified atrial fibrillation; E78.00 Pure hypercholesterolemia, unspecified; I10 Essential (primary) hypertension; M19.90 Unspecified osteoarthritis, unspecified site; J45.909 Unspecified asthma, uncomplicated; E05.90 Thyrotoxicosis, unspecified without thyrotoxic crisis or storm; F41.9 Anxiety disorder, unspecified; F32.A Depression, unspecified; G89.29 Other chronic pain; Z95.0 Presence of cardiac pacemaker; Z90.710 Acquired absence of both cervix and uterus; Z88.1 Allergy status to other antibiotic agents; Z79.899 Other long term (current) drug therapy
CPT/HCPCS: 99283; J1100